=== PATIENT | male | born 1975 | race Caucasian/White ===

== ENCOUNTER 2023-07-15 08:27 | Day surgery (SDC) | payer OTHER, SELFPAY ==
[2023-07-02 15:04] VITALS: BMI 24.7
[2023-07-05 11:59] VITALS: BMI 23.4
[2023-07-15 09:45] VITALS: BP 131/90; PULSE 92; RESP 20; TEMP 36.7; O2SAT 100
--- NOTE | 2023-07-15 09:53 | WPDANESEPPF ---
Anes - Initial Pre Proc Eval Procedure: Operation Date: 07/15/23 11:00 Proposed Procedures p Screening Colonoscopy - Lazaro Higginbotham MD Date/Time: 07/15/23 09:53 Surgeon: Lazaro Higginbotham MD Pre Op Diagnosis: Neoplasm Screening Patient Data Age: 48 Gender: M Height: 1.7 m Weight: 68 kg Allergies Allergy/AdvReac Type Severity Reaction Status Date / Time Sulfa (Sulfonamide Allergy Unknown Unknown Verified 07/05/23 12:02 Antibiotics) chlorhexidine AdvReac Severe Blister Verified 07/05/23 12:02 Home Medications Medication Instructions Recorded Confirmed Type blood sugar diagnostic (Blood #100 ea 01/21/20 06/10/23 Rx Glucose Test strips) blood-glucose meter (Blood Glucose #1 ea 01/21/20 06/10/23 Rx Monitoring kit) lancets #100 ea 01/21/20 06/10/23 Rx blood-glucose meter #1 ea 09/18/20 06/10/23 Rx multivitamin 1 tablet PO DAILY 09/18/20 07/05/23 History omega-3 fatty acids 1,000 mg 1,000 mg PO DAILY 11/25/21 07/05/23 History capsule escitalopram oxalate 10 mg tablet 10 mg PO DAILY #90 tabs 07/26/22 07/05/23 Rx (Lexapro) trazodone 50 mg tablet See Rx Instructions .Route 09/24/22 07/05/23 Rx .COMPLEX #30 tabs metformin 1,000 mg tablet 1,000 mg PO BID #180 tabs 11/30/22 07/05/23 Rx krill oil 500 mg capsule 500 mg PO DAILY 12/01/22 07/05/23 History simvastatin 40 mg tablet 40 mg PO DAILY #90 tabs 01/10/23 07/05/23 Rx lisinopril 30 mg tablet 30 mg PO DAILY #90 tabs 03/28/23 07/05/23 Rx empagliflozin 25 mg tablet See Rx Instructions .Route 04/12/23 07/05/23 Rx (Jardiance) .COMPLEX #90 tabs semaglutide 2 mg/dose (8 mg/3 mL) 2 mg (0.75 mL) subcut WEEKLY 90 06/10/23 07/05/23 Rx subcutaneous pen injector (Ozempic) days #9 mL sodium,potassium,mag sulfates 17.5 See Rx Instructions PO .COMPLEX 07/02/23 07/05/23 Rx gram-3.13 gram-1.6 gram oral soln #354 mL (Suprep Bowel Prep Kit) ezetimibe 10 mg tablet (Zetia) 10 mg PO DAILY 07/05/23 07/05/23 History fenofibrate nanocrystallized 145 145 mg PO DAILY 07/05/23 07/05/23 History mg tablet (Tricor) Patient hx anesthesia problems: none Family hx anesthesia problems: none Results Review: All pre-operative results and documents have been reviewed as part of the pre-operative evaluation. [facility] Past Medical History Medical History SANDIE (generalized anxiety disorder) H/O multiple concussions Hematochezia Hemochromatosis History of broken nose Hyperlipidemia Hypertension Hypertriglyceridemia Low libido Mass of chest Type 2 diabetes mellitus with hyperglycemia Vitamin D deficiency Surgical History Surgical History History of bunionectomy S/P scrotal varicocelectomy [place] teeth extracted Family History Family History Father Hypertension Diabetes mellitus Heart disease Hyperlipemia Mother Diabetes mellitus Hyperlipemia Hypertension Macula lutea degeneration Other CAD (coronary artery disease) CHF (congestive heart failure), NYHA class I Cancer Social History Social History Smoking status: Never smoker Second hand tobacco smoke exposure: No Alcohol intake: current Drinks per week: 5 Alcohol use details: weekends Substance use: never Substance use type: does not use Lack of Transportation: No Lack of Food: Never True Current Housing: I Have Housing Concerned About Future Housing: No Difficulty Paying Gas/Electric Bills: No Difficulty Paying for Meds: No Currently Unemployed: No Education: Master's Degree or Higher Difficulty w/ Childcare or Family Care: No Living arrangements: with family Occupation/Education: occupation Gender identity (if verbalized by the patient): Male Sexual Orientation (if Verbalized by the Patient): Straight or Heterose
[2023-07-15 10:13] LABS: Glucose Point of Care 79 mg/dl (65-105)
[2023-07-15] MEDS: LACTATED RINGERS 1,000 ML 150 ML IV CONT (10:17)
--- NOTE | 2023-07-15 10:26 | PM.HPGS ---
History of Present Illness History of Present Illness Consent: Risks, benefits, and alternatives have been discussed and questions answered. Patient agrees to proceed with procedure. Chief complaint: Neoplasm Screening Narrative: Tj Gibbons is a 48 year old male presents for screening colonoscopy. Patient's current weight appetite and bowel movements are normal. Patient denies abdominal pain. He has had no bleeding. Family history noncontributory. Review of Systems Review of Systems: Review of systems noncontributory. PMFSH Past Medical History Medical History SANDIE (generalized anxiety disorder) H/O multiple concussions Hematochezia Hemochromatosis History of broken nose Hyperlipidemia Hypertension Hypertriglyceridemia Low libido Mass of chest Type 2 diabetes mellitus with hyperglycemia Vitamin D deficiency Surgical History Surgical History History of bunionectomy S/P scrotal varicocelectomy [place] teeth extracted Family History Family History Father Hypertension Diabetes mellitus Heart disease Hyperlipemia Mother Diabetes mellitus Hyperlipemia Hypertension Macula lutea degeneration Other CAD (coronary artery disease) CHF (congestive heart failure), NYHA class I Cancer Social History Social History Smoking status: Never smoker Second hand tobacco smoke exposure: No Alcohol intake: current Drinks per week: 5 Alcohol use details: weekends Substance use: never Substance use type: does not use Lack of Transportation: No Lack of Food: Never True Current Housing: I Have Housing Concerned About Future Housing: No Difficulty Paying Gas/Electric Bills: No Difficulty Paying for Meds: No Currently Unemployed: No Education: Master's Degree or Higher Difficulty w/ Childcare or Family Care: No Living arrangements: with family Occupation/Education: occupation Gender identity (if verbalized by the patient): Male Sexual Orientation (if Verbalized by the Patient): Straight or Heterosexual Spiritual care concerns: No Agree to blood products: Yes Meds Home Medications and Allergies Home Medications Medication Instructions Recorded Confirmed Type blood sugar diagnostic (Blood #100 ea 01/21/20 07/15/23 Rx Glucose Test strips) blood-glucose meter (Blood Glucose #1 ea 01/21/20 07/15/23 Rx Monitoring kit) lancets #100 ea 01/21/20 07/15/23 Rx blood-glucose meter #1 ea 09/18/20 07/15/23 Rx multivitamin 1 tablet PO DAILY 09/18/20 07/15/23 History omega-3 fatty acids 1,000 mg 1,000 mg PO DAILY 11/25/21 07/15/23 History capsule escitalopram oxalate 10 mg tablet 10 mg PO DAILY #90 tabs 07/26/22 07/15/23 Rx (Lexapro) trazodone 50 mg tablet See Rx Instructions .Route 09/24/22 07/15/23 Rx .COMPLEX #30 tabs metformin 1,000 mg tablet 1,000 mg PO BID #180 tabs 11/30/22 07/15/23 Rx krill oil 500 mg capsule 500 mg PO DAILY 12/01/22 07/15/23 History simvastatin 40 mg tablet 40 mg PO DAILY #90 tabs 01/10/23 07/15/23 Rx lisinopril 30 mg tablet 30 mg PO DAILY #90 tabs 03/28/23 07/15/23 Rx empagliflozin 25 mg tablet See Rx Instructions .Route 04/12/23 07/15/23 Rx (Jardiance) .COMPLEX #90 tabs semaglutide 2 mg/dose (8 mg/3 mL) 2 mg (0.75 mL) subcut WEEKLY 90 06/10/23 07/15/23 Rx subcutaneous pen injector (Ozempic) days #9 mL sodium,potassium,mag sulfates 17.5 See Rx Instructions PO .COMPLEX 07/02/23 07/15/23 Rx gram-3.13 gram-1.6 gram oral soln #354 mL (Suprep Bowel Prep Kit) ezetimibe 10 mg tablet (Zetia) 10 mg PO DAILY 07/05/23 07/15/23 History fenofibrate nanocrystallized 145 145 mg PO DAILY 07/05/23 07/15/23 History mg tablet (Tricor) Allergies Allergy/AdvReac Type Severity Reaction Status Date / T
[2023-07-15 11:35] VITALS: BP 89/59; PULSE 104; RESP 16; O2SAT 100
--- NOTE | 2023-07-15 11:37 | WPDANESPN ---
Anes - Prog Note Post-Op Date/Time: 07/15/23 11:37 Cardiovascular status: normal Respiratory status: normal Airway patency: baseline Mental status: baseline Post-Op hydration status: normal Vital Signs: Last Vital Signs Temp 36.7 C 07/15/23 09:45 Pulse 92 07/15/23 09:45 Resp 20 07/15/23 09:45 BP 131/90 07/15/23 09:45 Pulse Ox 100 07/15/23 09:45 O2 Del Method Room Air 07/15/23 09:45 Pain Score (VAS): 0 I/O: Intake & Output 07/14/23 07/15/23 07/15/23 23:59 07:59 15:59 Intake Total 700 Balance 700 07/15/23 10:11 POC Capillary Glucose 79 Patient Feedback: Patient satisfied with anesthetic care.
[2023-07-15 11:45] VITALS: BP 104/76; PULSE 85; RESP 15; O2SAT 100
[2023-07-15 11:55] VITALS: BP 116/76; PULSE 89; RESP 15; O2SAT 10
== END 2023-07-15 12:15 | disposition home or self-care (01) ==
PROVIDERS: PCP Family Medicine; Visit Provider Internal Medicine Gastroenterology
PROC: 0DJD8ZZ Inspection of Lower Intestinal Tract, Via Natural or Artificial Opening Endoscopic (ICD-10-PCS; CPT 45378; principal; 2023-07-15 11:00)
DX: Z12.11 Encounter for screening for malignant neoplasm of colon (principal); K64.8 Other hemorrhoids
CPT/HCPCS: 45378